=== PATIENT | male | born 1950 | race Caucasian/White ===

== ENCOUNTER 2018-03-10 05:59 | Emergency (ER) | payer MEDICARE, OTHER ==
[~2018-03-10] VITALS: Ht 177.8 cm; Wt 167.8 kg
--- OUTSIDE RECORDS SUMMARY | ~2018-03-10 | XMS | Clinical Summary ---
Demographics + + + | Address | [address] | | | [place] [address] | + + + | Home Phone | | + + + | Preferred Language | Unknown | + + + | Marital Status | | + + + | Zoroastrian Affiliation | Unknown | + + + | Race | Unknown | + + + | Ethnic Group | Unknown | + + + Author + + + | Author | [facility] | | | and [place] | + + + | Organization | [facility] | | | and [place] | + + + | Address | Unknown | + + + | Phone | Unavailable | + + + Support + + +---------+ + | Name | Relationship | Address | Phone | + + +---------+ + | SAMANTA CHANG | ECON | Unknown | | | H A. | | | | + + +---------+ + Care Team Providers + +------+ + | Care House Cleaner Supervisor Name | Role | Phone | + +------+ + PP | Unavailable | + +------+ + Allergies Not on File Current Medications Not on file Active Problems Not on file Social History + +-------+ +--------+------+ | Tobacco Use | Types | Packs/Day | Years | Date | | | | | Used | | + +-------+ +--------+------+ | Never Assessed | | | | | + +-------+ +--------+------+ + + + | Sex Assigned at | Date Recorded | | | | + + + | Not on file | | + + + Plan of Treatment + + + + + | Health Maintenance | Due Date | Last Done | Comments | + + + + + | Vaccine: | | | | | Dtap/Tdap/Td (1 - | 1 | | | | Tdap) | | | | + + + + + | Vaccine: Zoster (1 | | | | | of 2) | 2 | | | + + + + + | Vaccine: | | | | | Pneumococcal 65+ | 7 | | | | Low/Medium Risk (1 | | | | | of 2 - PCV13) | | | | + + + + + | Vaccine: Influenza | | | | | (#1) | 8 | | | + + + + + Results Not on filefrom Last 3 Months"
--- OUTSIDE RECORDS SUMMARY | ~2018-03-10 | XMS | Clinical Summary ---
Demographics + + + | Address | [address] | | | [place] [address] | + + + | Home Phone | | + + + | Preferred Language | Unknown | + + + | Marital Status | | + + + | Moravian Affiliation | Unknown | + + + | Race | Unknown | + + + | Ethnic Group | Unknown | + + + Author + + + | Author | [facility] | | | and [place] | + + + | Organization | [facility] | | | and [place] [...] Team Providers + +------+ + | Care Fisheries Officer Name | Role | Phone | + [...]
[~2018-03-10 05:59] MED LIST: ALEVE220 MG PO; ASPIRIN EC81 MG PO; FENOFIBRATE160 MG PO; FLOMAX0.4 MG PO; K-TAB ER20 MEQ PO; LASIX40 MG PO; LISINOPRIL-HCT1 EACH PO; MELOXICAM15 MG PO; METOPROLOL SUC200 MG PO; PROSCAR5 MG PO; SIMVASTATIN80 MG PO; SYNTHROID175 MCG PO; TAMSULOSIN HCL0.4 MG PO; VITAMIN D2000 UNIT PO
--- OUTSIDE RECORDS SUMMARY | 2018-03-10 06:02 | XMS ---
PreManage Notification: PHILIP SANDERS Security Guyline Operator Events No recent Security Events currently on file CRITERIA MET - [facility] - 2 Visits in 30 Days CARE PROVIDERS Christian Hoang MD PHONE: Unknown Edita has no Care Guidelines for this patient. EOpal VISIT COUNT (12 MO.) 2 [facility] TOTAL 2 NOTE: Visits indicate total known visits. 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
== END 2018-03-10 06:32 | disposition home or self-care (01) ==
LOC: ED 05:59
DX: R32 Unspecified urinary incontinence (principal); E03.9 Hypothyroidism, unspecified; I10 Essential (primary) hypertension; E78.00 Pure hypercholesterolemia, unspecified; Z88.5 Allergy status to narcotic agent; Z88.8 Allergy status to other drugs, medicaments and biological substances; Z79.82 Long term (current) use of aspirin; Z79.899 Other long term (current) drug therapy
CPT/HCPCS: 51702; 99283

== ENCOUNTER 2018-03-12 07:27 | Emergency (ER) | payer MEDICARE, OTHER ==
[~2018-03-12] VITALS: Ht 177.8 cm; Wt 167.8 kg
--- OUTSIDE RECORDS SUMMARY | ~2018-03-12 | XMS | Clinical Summary ---
Demographics + + + | Address | [address] | | | [place] [address] | + + + | Home Phone | | + + + | Preferred Language | Unknown | + + + | Marital Status | | + + + | Taoism Affiliation | Unknown | + + + | Race | Unknown | + + + | Ethnic Group | Unknown | + + + Author + + + | Author | [facility] | | | and [place] | + + + | Organization | [facility] | | | and [place] | [...] Team Providers + +------+ + | Care Patient Assistant Name | Role | Phone | + [...]
--- OUTSIDE RECORDS SUMMARY | ~2018-03-12 | XMS | Clinical Summary ---
Demographics + + + | Address | [address] | | | [place] [address] | + + + | Home Phone | | + + + | Preferred Language | Unknown | + + + | Marital Status | | + + + | Mandaen Affiliation | Unknown | + + + | Race | Unknown | + + + | Ethnic Group | Unknown | + + + Author + + + | Author | [facility] | | | and [place] | + + + | Organization | [facility] | | | and [place] | [...] Team Providers + +------+ + | Care Audiology Technician Name | Role | Phone | + [...]
--- OUTSIDE RECORDS SUMMARY | 2018-03-12 07:32 | XMS ---
PreManage Notification: PHILIP SANDERS Security Beam Dyer Events No recent Security Events currently on file CRITERIA MET - [facility] - 2 Visits in 30 Days CARE PROVIDERS Christian Hoang MD PHONE: Unknown Edita has no Care Guidelines for this patient. EOpal VISIT COUNT (12 MO.) 3 [facility] TOTAL 3 NOTE: Visits indicate total known visits. ED/UCC VISIT TRACKING (12 MO.) 03/12/2018 07:28 [facility] [place] TYPE: Emergency COMPLAINT: - CATHETER PROBLEMS 03/10/2018 05:59 [facility] [place] TYPE: Emergency COMPLAINT: - BLOOD IN URINE 03/08/2018 19:43 [facility] [place] TYPE: Emergency COMPLAINT: - BLOOD IN URINE DIAGNOSES: - Allergy status to other drugs, medicaments and biological substances status - Hematuria, unspecified - Hypothyroidism, unspecified - Other usp (current) drug therapy - Allergy status to narcotic agent status - Pure hypercholesterolemia, unspecified - retirement (current) use of aspirin - Essential (primary) hypertension INPATIENT VISIT TRACKING (12 MO.) 02/12/2018 10:25 [facility] TYPE: Medical Surgical COMPLAINT: - CYSTOSCOPY W/TURP DIAGNOSES: - retirement (current) use of non-steroidal anti-inflammatories (NSAID) - Poor urinary stream - Hyperlipidemia, unspecified - Postprocedural hypothyroidism - Urge incontinence - Essential (primary) hypertension - retirement (current) use of aspirin - Urgency of urination - Other obstructive and reflux uropathy - Frequency of micturition - Other assistant terminal manager (current) drug therapy - Personal history of malignant neoplasm of thyroid - Benign prostatic hyperplasia with lower urinary tract symptoms - Nocturia - Other obesity - Overactive bladder - Body mass index (BMI) 50-59.9 , adult [email or web address]
== END 2018-03-12 11:48 | disposition home or self-care (01) ==
LOC: ED 07:27
DX: N13.9 Obstructive and reflux uropathy, unspecified (principal); R31.9 Hematuria, unspecified; E03.9 Hypothyroidism, unspecified; I10 Essential (primary) hypertension; E78.00 Pure hypercholesterolemia, unspecified; Z88.5 Allergy status to narcotic agent; Z88.8 Allergy status to other drugs, medicaments and biological substances; Z79.899 Other long term (current) drug therapy
CPT/HCPCS: 51702; 85025; 99283

== ENCOUNTER 2018-08-06 15:49 | Emergency (ER) | payer MEDICARE, OTHER ==
[~2018-08-06] VITALS: Ht 177.8 cm; Wt 163.3 kg
--- OUTSIDE RECORDS SUMMARY | ~2018-08-06 | XMS | Clinical Summary ---
Demographics + + + | Address | [address] | | | [place] [address] | + + + | Home Phone | | + + + | Preferred Language | Unknown | + + + | Marital Status | | + + + | Yarsanism Affiliation | Unknown | + + + | Race | Unknown | + + + | Ethnic Group | Unknown | + + + Author + + + | Author | [facility] | | | and [place] | + + + | Organization | [facility] | | | and [...] Team Providers + +------+ + | Care Rigger Up Name | Role | Phone | + +------+ + | No, Physician | PP | Unavailable | + +------+ + Allergies + + + + + + | Active Allergy | Reactions | Severity | Noted | Comments | | | | | Date | | + + + + + + | Meperidine | Itching | | 03/13/20 | | | | | | 18 | | + + + + + + | Morphine And Related | Itching | | 03/13/20 | All opioids; | | | | | 18 | percocet, norco, | | | | | | ect. except fentanyl | | | | | | | + + + + + + | Tramadol | Itching | | 03/13/20 | | | | | | 18 | | + + + + + + Current Medications + + +--------+---------+------+------+-------+ | Prescription | Sig. | Disp. | Refills | Star | End | Statu | | | | | | t | Date | s | | | | | | Date | | | + + +--------+---------+------+------+-------+ | metoprolol | Take 200 mg by mouth | | | | | Activ | | succinate | Daily. | | | | | e | | (TOPROL-XL) 200 mg | | | | | | | | ER tablet | | | | | | | + + +--------+---------+------+------+-------+ | simvastatin | Take 80 mg by mouth | | | | | Activ | | (ZOCOR) 80 mg tablet | nightly. | | | | | e | + + +--------+---------+------+------+-------+ | levothyroxine | Take 175 mcg by | | | | | Activ | | (SYNTHROID) 175 MCG | mouth every morning | | | | | e | | tablet | (before breakfast). | | | | | | + + +--------+---------+------+------+-------+ | fenofibrate | Take 160 mg by mouth | | | | | Activ | | (LOFIBRA, TRIGLIDE) | Daily. | | | | | e | | 160 mg tablet | | | | | | | + + +--------+---------+------+------+-------+ | | Take 3 tablets by | | | | | Activ | | lisinopril-hydrochlo | mouth Daily. | | | | | e | | rothiazide | | | | | | | | (PRINZIDE,ZESTORETIC | | | | | | | | ) 20-12.5 MG per | | | | | | | | tablet | | | | | | | + + +--------+---------+------+------+-------+ | meloxicam (MOBIC) | Take 15 mg by mouth | | | | | Activ | | 15 mg tablet | Daily. | | | | | e | + + +--------+---------+------+------+-------+ | finasteride | Take 5 mg by mouth | | | | | Activ | | (PROSCAR) 5 mg | Daily. | | | | | e | | tablet | | | | | | | + + +--------+---------+------+------+-------+ | cholecalciferol | Take 2,000 Units by | | | | | Activ | | (VITAMIN D-3) 2000 | mouth Daily. | | | | | e | | units TABS | | | | | | | + + +--------+---------+------+------+-------+ | furosemide (LASIX) | Take 40 mg by mouth | | | | | Activ | | 40 mg tablet | Daily as needed | | | | | e | | | (ankle edema). | | | | | | + + +--------+---------+------+------+-------+ | potassium chloride | Take 20 mEq by mouth | | | | | Activ | | (KLOR-CON M20) 20 | Twice daily as | | | | | e | | mEq ER tablet | needed (when taking | | | | | | | | lasix). | | | | | | + + +--------+---------+------+------+-------+ | phenazopyridine | Take 1 tablet by | 20 | 0 | 11/0 | | Activ | | (PYRIDIUM) 200 mg | mouth 3 times daily | tablet | | 6/20 | | e | | tablet | as needed for Pain. | | | 18 | | | + + +--------+---------+------+------+-------+ Active Problems No known active problems Social History + +-------+ +--------+------+ | Tobacco Use | Types | Packs/Day | Years | Date | | | | | Used | | + +-------+ +--------+------+ | Never Smoker | | | | | + +-------+ +--------+------+ + +---+---+---+ | Smokeless Tobacco: | | | | | Never Used | | | | + +---+---+---+ + + +---------+ + | Alcohol Use | Drinks/We | oz/Week | Comments | | | ek | | | + + +---------+ + | No | | | | + + +---------+ + + + + | Sex Assigned at | Date Recorded | | | | + + + | Not on file | | + + + Last Filed Vital Signs + + + + | Vital Sign | Reading | Time Taken | + + + + | Blood Pressure | 135/88 | 03/13/2018 1245 PST | + + + + | Pulse | 100 | 03/13/2018 1101 PST | + + + + | Temperature | 37 C (98.6 F) | 03/13/2018 1245 PST | + + + + | Respiratory Rate | 16 | 03/13/2018 1245 PST | + + + + | Oxygen Saturation | 97% | 03/13/2018 1245 PST | + + + + | Inhaled Oxygen | - | - | | Concentration | | | + + + + | Weight | 167.8 kg (370 lb) | 03/13/2018718 PST | + + + + | Height | 177.8 cm (5' 10") | 03/13/2018718 PST | + + + + | Body Mass Index | 53.09 | 03/13/2018718 PST | + + + + Plan of Treatment + [...] Vaccine: Influenza | | | | | (Season Ended) | 9 | | | + + + + + Results Not on filefrom Last 3 Months Insurance + +--------+ +--------+ +---------+ | Payer | Benefi | Subscriber | Type | Phone | Address | | | t Plan | ID | | | | | | / | | | | | | | Group | | | | | + +--------+ +--------+ +---------+ | MEDICARE | MEDICA | [id number] | Medica | [phone] | | | | RE | | re | [phone] | | | | PART A | | | | | | | AND B | | | | | + +--------+ +--------+ +---------+ | [employer] | UNITED | [id number] | Indemn | [phone] | | | | OF | | ity | 1000 | | | | [place] | | | | | | | MDCR | | | | | | | SUPPL | | | | | + +--------+ +--------+ +---------+ + +--------+ +--------+ + + | Guarantor Name | Accoun | Relation to | Date | Phone | Billing Address | | | t Type | Patient | of | | | | | | | | | | + +--------+ +--------+ + + | PHILIP SANDERS | Person | Self [birth year] Home: | [address] | | [address] | | [phone] | [phone] | [place] [address] | | | hnay | | | [phone] | | + +--------+ +--------+ + +
--- OUTSIDE RECORDS SUMMARY | ~2018-08-06 | XMS | Clinical Summary ---
Demographics + + + | Address | [address] | | | [place] [address] | + + + | Home Phone | | + + + | Preferred Language | Unknown | + + + | Marital Status | | + + + | Roman Catholic Affiliation | Unknown | + + + | Race | Unknown | + + + | Ethnic Group | Unknown | + + + Author + + + | Author | [facility] | | | and [place] | + + + | Organization | [facility] | | | and [...] Team Providers + +------+ + | Care Change Analyst Name | Role | Phone | + [...] +--------+ +---------+ | MEDICARE | MEDICA | [id number] | Medica | [phone] | | | | RE | | re | [phone] | | | | PART A | | | | | | | AND B | | | | | + +--------+ +--------+ +---------+ | [employer] | UNITED | [id number] | Indemn | [phone] | | | | OF | | ity | [address] | | | | [place] | | | | | | | [...] | 1949 | [phone] | [place] [address] | | | hany | | | [phone] | | + +--------+ +--------+ + +
[2018-08-06] MEDS ORDERED: OXYBUTYNIN CHLO10 MG PO (16:14)
[2018-08-06] MEDS ORDERED: ASPIRIN81 MG PO (16:15)
[2018-08-06] MEDS ORDERED: ELIQUIS5 MG PO (17:19)
[2018-08-06] MEDS ORDERED: ELIQUIS2.5 MG PO (17:19)
== END 2018-08-06 17:43 | disposition home or self-care (01) ==
LOC: ED 15:49
DX: I82.4Z1 Acute embolism and thrombosis of unspecified deep veins of right distal lower extremity (principal); I10 Essential (primary) hypertension; E03.9 Hypothyroidism, unspecified; Z88.5 Allergy status to narcotic agent; Z88.8 Allergy status to other drugs, medicaments and biological substances; Z79.899 Other long term (current) drug therapy; Z79.82 Long term (current) use of aspirin
CPT/HCPCS: 85379; 93971; 99284-25

== ENCOUNTER 2022-06-24 07:45 | Day surgery (SDC) | payer MEDICARE, OTHER ==
[~2022-06-24] VITALS: Ht 177.8 cm; Wt 177.3 kg
[~2022-06-24 07:45] MED LIST changes: +ASPIRIN81 MG PO; +CEFDINIR300 MG PO; +ELIQUIS2.5 MG PO; +ELIQUIS5 MG PO; +HYDROCODON-ACE1 EA10 PO; +HYDROCODON-ACE1 EAC8 PO; +OXYBUTYNIN CHLO10 MG PO; +OXYBUTYNIN CHLO15 MG PO
--- NOTE | 2022-06-24 10:39 | NUR ---
06/24/22 1039 Archana Shepherd 1034 PATIENT ARRIVES TO PACU AWAKE. DENIES PAIN OR NAUSEA. RESP EVEN AND UNLABORED, NC AT 6 LITERS, TURNED OFF ON ARRIVAL. ROOM AIR SATS >90%.
--- NOTE | 2022-06-24 10:46 | NUR ---
PT ALERT, ORIENTED AND HERE FOR A SCOPE. PT WAITING FOR RN, REQUESTED HELP FOR THE BR, DS STAFF WILL ASSIST. WILL FOLLOW
--- NOTE | 2022-06-25 14:06 | OR ---
[facility] [address] [place], [place] [address] Signed DATE OF OPERATION: 06/24/2022 SURGEON: Iliana Allred MD PREOPERATIVE DIAGNOSIS: History of tubular adenomas, 2003, diverticulosis 2013. POSTOPERATIVE DIAGNOSES: 1. Sigmoid diverticulosis. 2. Polyps x2 (splenic flexure and sigmoid). 3. Mild proctitis. PROCEDURES: Total colonoscopy to cecum with cold snare polypectomy x1, cold morcellation polypectomy x1 and biopsy of rectum. ANESTHESIA: Intravenous sedation, propofol infusion, Leonides Ogden CRNA. INDICATION: This quite morbidly obese white man is a patient of Dr. Mclain, previously Dr. Hoang. He last underwent colonoscopy in 2013, at which time he had diverticulosis and several hyperplastic appearing polyps. He had tubular adenomas x2 in 2003. He is currently symptom free. He is admitted at this time to undergo colonoscopy. He understands the risks of bleeding, infection, and perforation. FINDINGS: The prep was adequate. Complete colonoscopy was undertaken to the cecum. He had numerous diverticula of the sigmoid and left colon. There were two small polyps, one splenic flexure, another in the sigmoid, both excised. There was some mild proctitis as well. This was biopsied. PROCEDURE IN DETAIL: The patient was brought to the surgical endoscopy suite and placed in lateral decubitus position given intravenous sedation to the point of slurred speech and nystagmus. Digital rectal examination was normal. The Olympus video colonoscope was passed in the rectum and manipulated throughout the colon noting in the sigmoid a small polyp. This was excised with cold snare polypectomy technique and passed for pathology. The scope was advanced beyond this ultimately to the cecum. Irrigation was undertaken as needed. The scope was withdrawn from the cecum and examination throughout showed no sign of Electronically Signed By: ILIANA ALLRED MD 06/25/22 1406 PATIENT NAME: PHILIP SANDERS OPERATIVE REPORT DATE OF : 54 REPORT #: [id number] PHYSICIAN: ILIANA ALLRED MD PCP: IMANI MCLAIN MD REPORT IS CONFIDENTIAL AND NOT TO BE RELEASED WITHOUT AUTHORIZATION [facility] [address] [place], [place] [address] Signed abnormality until the splenic flexure where a small polyp was noted, this was excised with cold morcellation technique completely. The scope was further withdrawn. Examination of rectum showed mild proctitis for reasons that are unclear. Biopsies were obtained. The scope was removed. The patient was taken to the recovery room in good condition. CONCLUDING DIAGNOSIS: Polyps x2, diverticulosis and mild proctitis. PLAN: Recommend repeat colonoscopy in 5 years, sooner if clinically indicated. He will return to the ongoing care of Dr. Mclain otherwise. MD JOSSELYN Faust/BIENVENIDO /[id number] cc: Dr. Mclain Copies: ~ Electronically Signed By: ILIANA ALLRED MD 06/25/22 1406 PATIENT NAME: PHILIP SANDERS OPERATIVE REPORT DATE OF : 54 REPORT #: [id number] PHYSICIAN: ILIANA ALLRED MD PCP: IMANI MCLAIN MD REPORT IS CONFIDENTIAL AND NOT TO BE RELEASED WITHOUT AUTHORIZATION
--- NOTE | 2022-06-28 16:06 | PATH ---
[facility] [address] [facility] [place] [address] Signed SPECIMEN(S): A DESCENDING/LEFT COLON POLYP SPECIMEN(S): B SPLENIC FLEXURE COLON POLYP SPECIMEN(S): C RECTUM BIOPSIES SPECIMEN SOURCE: A. DESCENDING/LEFT COLON POLYP B. SPLENIC FLEXURE COLON POLYP C. RECTUM BIOPSIES CLINICAL HISTORY: Surveillance colonoscopy, history of polyps. Postop: Diverticulosis, polyps x 3, mild proctitis. FINAL PATHOLOGIC DIAGNOSIS: A. Descending/left colon polyp, polypectomy: - Benign polypoid colonic mucosa. - Negative for dysplasia. B. Splenic flexure colon polyp, polypectomy: - Benign polypoid colonic mucosa with prominent lymphoid aggregate. - Negative for dysplasia. C. Rectum, biopsies: - Benign colonic mucosa. - Negative for acute inflammation, granulomata, and microscopic colitis. DF:slc:C2NR MICROSCOPIC EXAMINATION: Histologic sections of all submitted blocks are examined by light microscopy. These findings, together with the gross examination, support the pathologic diagnosis. GROSS DESCRIPTION: A. The specimen, labeled and designated "Ever, descending/left colon polyp," is received in formalin and consists of one aponte soft tissue fragment, 0.4 cm. Entirely submitted in (A1). B. The specimen, labeled and designated "Ever, splenic flexure colon polyp," is received in formalin and consists of one aponte soft tissue fragment, 0.4 cm. Entirely submitted in (B1). C. The specimen, labeled and designated "Ever, rectum biopsies," is received in formalin and consists of two aponte soft tissue fragments, ranging from 0.2-0.3 cm. Entirely submitted in (C1). VB (under the direct supervision of a pathologist) PATIENT NAME: PHLIIP SANDERS PATHOLOGY DATE OF : 54 REPORT #: [id number] PHYSICIAN: VIOLET MARCELINO PCP: IMANI MCLAIN MD REPORT IS CONFIDENTIAL AND NOT TO BE RELEASED WITHOUT AUTHORIZATION [facility] [address] [place], [place] [address] Signed The Gross Description was prepared using a voice recognition system. The report was reviewed for accuracy; however, sound-alike word errors, addition and/or deletions may occur. If there is any question about this report, please contact Client Services. PERFORMING LABORATORY: The technical component was performed by [employer], [address] [place] [address] (CLIA# [id number]). Professional interpretation was performed by [employer], [facility], [address] [place] [address] (CLIA#: [id number]) Diagnostician: Jayme Perez DO Pathologist Electronically Signed 06/28/2022 Copies: ~ PATIENT NAME: PHILIP SANDERS PATHOLOGY DATE OF : 54 REPORT #: [id number] PHYSICIAN: VIOLET PATHOLOGY PCP: IMANI MCLAIN MD REPORT IS CONFIDENTIAL AND NOT TO BE RELEASED WITHOUT AUTHORIZATION
== END 2022-06-24 11:05 | disposition home or self-care (01) ==
LOC: DS 07:45
PROVIDERS: ATTEND Surgery
PROC: 0DBL8ZZ Excision of Transverse Colon, Via Natural or Artificial Opening Endoscopic (ICD-10-PCS; 2022-06-24)
PROC: 0DBP8ZZ Excision of Rectum, Via Natural or Artificial Opening Endoscopic (ICD-10-PCS; principal; 2022-06-24 09:45)
DX: Z12.11 Encounter for screening for malignant neoplasm of colon (principal); K63.5 Polyp of colon; E66.01 Morbid (severe) obesity due to excess calories; K57.30 Diverticulosis of large intestine without perforation or abscess without bleeding; K62.89 Other specified diseases of anus and rectum; Z86.010 Personal history of colon polyps; Z85.850 Personal history of malignant neoplasm of thyroid
CPT/HCPCS: J0690; J2704; J7121

== ENCOUNTER 2023-07-01 06:35 | Emergency (ER) | payer MEDICARE, OTHER ==
[~2023-07-01] VITALS: Ht 177.8 cm; Wt 178.0 kg
[2023-07-01] MEDS ORDERED: ELIQUIS5 MG PO (06:44)
[2023-07-01 08:27] VITALS: BP 157/91
== END 2023-07-01 08:29 | disposition home or self-care (01) ==
LOC: ED 06:35
DX: M25.562 Pain in left knee (principal); E03.9 Hypothyroidism, unspecified; I10 Essential (primary) hypertension; E78.00 Pure hypercholesterolemia, unspecified; N40.0 Benign prostatic hyperplasia without lower urinary tract symptoms; Z88.5 Allergy status to narcotic agent; Z88.8 Allergy status to other drugs, medicaments and biological substances; Z79.890 Hormone replacement therapy; Z79.899 Other long term (current) drug therapy; Z79.01 Long term (current) use of anticoagulants; Z86.718 Personal history of other venous thrombosis and embolism
CPT/HCPCS: 93971

== ENCOUNTER 2023-11-21 16:09 | Emergency (ER) | payer MEDICARE, OTHER ==
[~2023-11-21] VITALS: Ht 177.8 cm; Wt 185.3 kg
[2023-11-21] MEDS ORDERED: FINASTERIDE5 MG PO (16:27)
[2023-11-21 18:00] VITALS: BP 124/64
[2023-11-21] MEDS ORDERED: HYDROCODON-ACE1 EAC8 PO (18:08)
== END 2023-11-21 18:15 | disposition home or self-care (01) ==
LOC: ED 16:09
DX: S90.811A Abrasion, right foot, initial encounter (principal); S90.812A Abrasion, left foot, initial encounter; I10 Essential (primary) hypertension; X58.XXXA Exposure to other specified factors, initial encounter; Z88.5 Allergy status to narcotic agent; Z88.8 Allergy status to other drugs, medicaments and biological substances; Z79.890 Hormone replacement therapy; Z79.899 Other long term (current) drug therapy
CPT/HCPCS: 99283

== ENCOUNTER 2024-05-16 06:58 | Emergency (ER) | payer MEDICARE, OTHER ==
[~2024-05-16] VITALS: Ht 177.8 cm; Wt 174.2 kg
[~2024-05-16 06:58] MED LIST changes: +FINASTERIDE5 MG PO
[2024-05-16] MEDS ORDERED: BACTRIM DS TAB1 EACH PO (08:55)
[2024-05-16] MEDS ORDERED: TRIMETHOPRIM/SULFAMETHOXAZOLE 1 EA TAB PO ONE (09:00)
[2024-05-16 09:01] VITALS: BP 150/100
== END 2024-05-16 09:01 | disposition home or self-care (01) ==
LOC: ED 06:58
DX: L03.115 Cellulitis of right lower limb (principal); I82.511 Chronic embolism and thrombosis of right femoral vein; E03.9 Hypothyroidism, unspecified; I10 Essential (primary) hypertension; E78.00 Pure hypercholesterolemia, unspecified; N40.0 Benign prostatic hyperplasia without lower urinary tract symptoms; Z88.5 Allergy status to narcotic agent; Z88.8 Allergy status to other drugs, medicaments and biological substances; Z79.01 Long term (current) use of anticoagulants; Z79.890 Hormone replacement therapy; Z79.899 Other long term (current) drug therapy
CPT/HCPCS: 93971; 99283-25; A9270

== ENCOUNTER 2024-05-27 05:50 | Day surgery (SDC) | payer MEDICARE, OTHER ==
[~2024-05-27] VITALS: Ht 177.8 cm; Wt 174.5 kg
[~2024-05-27 05:50] MED LIST changes: +BACTRIM DS TAB1 EACH PO; +LACTATED RINGER'S 1,000 ML IV SCH; +OXYCODONE HCL10 MG PO; -VITAMIN D2000 UNIT PO; +VITAMIN D3125 MC2 PO
[2024-05-27 06:19] VITALS: BP 170/99
[2024-05-27] MEDS ORDERED: HYDROCODON-ACE1 EAC8 PO (06:30)
[2024-05-27] MEDS ORDERED: IBLOOD GLUCOSE TEST STRIP 1 EA TEST VI PRN (07:00)
[2024-05-27] MEDS ORDERED: CEFAZOLIN SODIUM 3 GM/30 ML SYR IV SCH (07:00)
[2024-05-27] MEDS ORDERED: LIDOCAINE HCL 1% 5 ML SDV INJ ONE (07:00)
[2024-05-27] MEDS ORDERED: fentaNYL citrate 100 MCG/2 ML VIAL ONE (07:22)
[2024-05-27] MEDS ORDERED: DEXAMETHASONE SOD PHOS 4 MG/ML VIAL ONE (07:23)
[2024-05-27] MEDS ORDERED: ondansetron HCL 4 MG/2 ML VIAL ONE (07:23)
[2024-05-27] MEDS ORDERED: MIDAZOLAM HCL 2 MG/2 ML VIAL ONE (07:23)
[2024-05-27] MEDS ORDERED: dexmedeTOMIDine HCl 200 MCG/2 ML VIAL ONE (07:23)
[2024-05-27] MEDS ORDERED: propofoL 200 MG/20 ML VIAL ONE ×2 (07:23→09:32)
[2024-05-27] MEDS ORDERED: HYDROCODONE/ACETA 5/325 TAB PO PRN (07:45)
[2024-05-27] MEDS ORDERED: ondansetron HCL 4 MG/2 ML VIAL IV PRN (07:45)
--- NOTE | 2024-05-27 08:09 | NUR ---
PT NOT AVAILABLE FOR VISIT. PROVIDED PRAYER.
[2024-05-27] MEDS ORDERED: GLYCOPYRROLATE 1 MG/5 ML MDV ONE (08:37)
--- NOTE | 2024-05-27 09:42 | NUR ---
PT UNABLE TO VOID FOR UA. PT DENIES S/SX'S OF UTI. VERBAL ORDER TO DC UA ORDER. UPDATED ORDERS.
--- NOTE | 2024-05-27 10:09 | NUR ---
05/27/24 Víctor9 Alejandra Yang 0952-PT TO PACU IN SF POSITION. AWAKE AND ALERT. DENIES PAIN NAUSEA OR DIZZINESS. PT REQUESTING ICE CHIPS. BREATHING EASY AND UNLABORED. SPO2 >95% ON ROOM AIR. BP ELEVATED, LINE MAINTAINER NOTIFIED. 0958-PT REMAINS AWAKE AND ALERT, REPOSITIONING SELF IN BED. PT DENIES PAIN NAUSEA OR DIZZINESS. BREATHING EASY AND UNLABORED. SPO2 >95% ON ROOM AIR. 1006-PT REMAINS AWAKE AND ALERT. BREATHING EASY AND UNLABORED. SPO2 >95% ON ROOM AIR. PT DENIES PAIN AND NAUSEA.
[2024-05-27 10:29] VITALS: BP 149/105
--- NOTE | 2024-05-27 10:30 | NUR ---
Patient returns back to treatment room from PACU. Patient is awake and talking. He is doing well. He denies any nausea/vomiting and denies pain. we need a urine sample from him before he leaves and he states that he does not have the urge to urinate yet. a urinal was provided to patient when he does feel the need to urinate. He has 3 surgical sites:sacral, left flank, and right flank. Dermabond to the sacral and right flank site and it is intact. biopatch and tagaderm to lt flank and it is intact with minimal bleeding noted. additional water provided to patient. he denies any other needs at this time. Call light within reach, bed in lowest position. The escrow representative is aware that the patient is ready to be spoken with and will be in soon to speak with him.
[2024-05-27 11:37] VITALS: BP 182/98
[2024-05-27 11:39] LABS: BILIRUBIN, URINE NEGATIVE (negative); BLOOD/HGB, URINE NEGATIVE (Negative); KETONE, URINE NEGATIVE (Negative); LEUK ESTERASE, URINE NEGATIVE (negative); NITRITE, URINE NEGATIVE (negative)
--- NOTE | 2024-05-27 11:39 | NUR ---
Hourly rounding on patient. Vital signs obtained and he is hypertensive as he was when he got here. He has been able to provide a urine sample. That was collected and taken to the lab. Patient allowed to get dressed at this time. Dressings to surgical sites are intact.
--- NOTE | 2024-05-27 11:48 | NUR ---
1135-INTO PTS ROOM FOR ASSISTANCE WITH DRESSING FOR DISCHARGE, IV REMOVAL, AND DC EDUCATION. PT ASSISTED W/PLACING SOCKS AND SHOES. 1140-IV REMOVED. TIP APPEARS TO BE INTACT. PRESSURE DRSG APPLIED W/GAUZE AND COBAN. CALL PLACED TO PTS FRIEND FOR RIDE HOME. DC EDUCATION REVIEWED WITH PT WELL HARDCOPY RX GIVEN TO PT. PT SEND WITH EDUCATIONAL HANDOUTS REGARDING POST-OP CARE FOR TRIAL NEUROMODULATOR. PT ALSO IN POCESSION OF NEUROMODULATOR REMOTE. PT VERBALIZED UNDERSTANDING. ALL QUESTIONS ANSWERED.
--- NOTE | 2024-05-27 11:50 | NUR ---
PT DISCHARGED FROM DS VIA WC TO PASSENGER SIDE OF FRIENDS VEHICLE. PT TOOK ALL PERSONAL BELONINGS WITH HIM.
== END 2024-05-27 11:50 | disposition home or self-care (01) ==
LOC: OPS 05:50 → DS 05:50 → OPS 07:30 → DS 08:00 → OPS 11:50
PROVIDERS: ATTEND Urology
PROC: 01HY3MZ Insertion of Neurostimulator Lead into Peripheral Nerve, Percutaneous Approach (ICD-10-PCS; 2024-05-27)
PROC: 0JH73MZ Insertion of Stimulator Generator into Back Subcutaneous Tissue and Fascia, Percutaneous Approach (ICD-10-PCS; principal; 2024-05-27 07:30)
DX: N32.81 Overactive bladder (principal); N40.1 Benign prostatic hyperplasia with lower urinary tract symptoms; N39.498 Other specified urinary incontinence; R35.1 Nocturia; I10 Essential (primary) hypertension; E78.00 Pure hypercholesterolemia, unspecified; E89.0 Postprocedural hypothyroidism; Z79.890 Hormone replacement therapy; Z79.01 Long term (current) use of anticoagulants; Z79.899 Other long term (current) drug therapy; Z88.5 Allergy status to narcotic agent; Z88.1 Allergy status to other antibiotic agents; Z86.718 Personal history of other venous thrombosis and embolism
CPT/HCPCS: 00300; 72220; 81003; C1778; C1889; C1897; J0690; J1100; J2250; J2405; J2704; J3010; J7121

== ENCOUNTER 2024-06-10 05:40 | Day surgery (SDC) | payer MEDICARE, OTHER ==
[~2024-06-10] VITALS: Ht 177.8 cm; Wt 174.5 kg
[2024-06-10 06:04] VITALS: BP 160/82
[2024-06-10] MEDS ORDERED: DOXYCYCLINE HY100 M3 PO (06:08)
[2024-06-10] MEDS ORDERED: propofoL 200 MG/20 ML VIAL ONE (06:41)
[2024-06-10] MEDS ORDERED: FAMOTIDINE 20 MG/ 2 ML VIAL ONE (06:41)
[2024-06-10] MEDS ORDERED: KETOROLAC TROMETHAMINE 30 MG/ML VIAL ONE (06:41)
[2024-06-10] MEDS ORDERED: DEXAMETHASONE SOD PHOS 4 MG/ML VIAL ONE (06:41)
[2024-06-10] MEDS ORDERED: ondansetron HCL 4 MG/2 ML VIAL ONE (06:41)
[2024-06-10] MEDS ORDERED: METOCLOPRAMIDE HCL 10 MG/2 ML SDV ONE (06:41)
[2024-06-10] MEDS ORDERED: LACTATED RINGER'S 1,000 ML IV ONE (06:41)
[2024-06-10] MEDS ORDERED: KETAMINE in NS 50 MG/5 ML SYR ONE (06:42)
[2024-06-10] MEDS ORDERED: CEFAZOLIN SODIUM 3 GM/30 ML SYR IV SCH (07:00)
[2024-06-10] MEDS ORDERED: IBLOOD GLUCOSE TEST STRIP 1 EA TEST VI PRN (07:00)
[2024-06-10] MEDS ORDERED: LIDOCAINE HCL 1% 5 ML SDV INJ ONE (07:00)
--- NOTE | 2024-06-10 07:28 | NUR ---
PT NOT AVAILABLE FOR VISIT. PROVIDED PRAYER.
[2024-06-10] MEDS ORDERED: HYDROmorphone HCL 1 MG/ML SYR IV PRN (07:30)
[2024-06-10] MEDS ORDERED: ondansetron HCL 4 MG/2 ML VIAL IV PRN (07:30)
[2024-06-10] MEDS ORDERED: HYDROCODONE/ACETA 5/325 TAB PO PRN (07:30)
--- NOTE | 2024-06-10 08:41 | NUR ---
06/10/24 0841 Nola Salomon 0827-PT ARRIVES TO PACU VIA STRETCHER, RESTING SEMI FOWLERS, PT RESPONISIVE TO VERBAL STIMULI AND ABLE TO FOLLOW COMMANDS TO DEEP BREATH AND COUGH. VSS ON 10L VIA MASK, RR EVEN AND UNLABORED. PT DENIES PAIN OR NAUSEA. 0830-PT TITRATED TO RA, VS REMAIN STABLE.
[2024-06-10 09:38] VITALS: BP 169/85
== END 2024-06-10 09:20 | disposition home or self-care (01) ==
LOC: DS 05:40 → OPS 05:40 → DS 07:30 → OPS 07:30
PROVIDERS: ATTEND Urology
PROC: 0JH70MZ Insertion of Stimulator Generator into Back Subcutaneous Tissue and Fascia, Open Approach (ICD-10-PCS; principal; 2024-06-10 07:30)
DX: N32.81 Overactive bladder (principal); I10 Essential (primary) hypertension; N40.1 Benign prostatic hyperplasia with lower urinary tract symptoms; R35.1 Nocturia; E89.0 Postprocedural hypothyroidism; E78.00 Pure hypercholesterolemia, unspecified; E66.9 Obesity, unspecified; Z68.43 Body mass index [BMI] 50.0-59.9, adult; Z79.890 Hormone replacement therapy; Z79.01 Long term (current) use of anticoagulants; Z79.899 Other long term (current) drug therapy; Z88.5 Allergy status to narcotic agent; Z88.1 Allergy status to other antibiotic agents; Z86.718 Personal history of other venous thrombosis and embolism
CPT/HCPCS: 00790; C1767; C1787; J0690; J1100; J1885; J2405; J2704; J2765; J3490; J7121